=== PATIENT | female | born 1995 | race Caucasian/White ===

== ENCOUNTER 2020-01-13 12:35 | Inpatient (IN) | payer OTHER ==
[~2020-01-13] VITALS: Ht 165 cm; Wt 86.6 kg
[2020-01-13] MEDS ORDERED: OXYTOCIN 30 UNITS/LACT RINGERS 500 ML IV ONE ×2 (13:15→19:45)
[2020-01-13] MEDS ORDERED: METOCLOPRAMIDE HCL 5 MG/ML 2 ML VIAL IVP PRN (13:15)
[2020-01-13] MEDS ORDERED: RINGERS SOLUTION,LACTATED 1,000 ML IV PRN (13:15)
[2020-01-13] MEDS ORDERED: CITRIC ACID/SODIUM CITRATE 30 ML SOLUTION UDCUP PO PRN (13:15)
[2020-01-13] MEDS ORDERED: FentaNYL CITRATE-PF 100 MCG/2 ML VIAL IVP PRN (13:15)
[2020-01-13] MEDS ORDERED: METHYLERGONOVINE MALEATE 0.2 MG/ML VIAL IM PRN (13:15)
[2020-01-13] MEDS ORDERED: OXYTOCIN 30 UNITS/LACT RINGERS 500 ML IV PRN (13:15)
[2020-01-13] MEDS ORDERED: LIDOCAINE/PF 1% 30 ML VIAL INJ PRN ×2 (13:15→19:45)
[2020-01-13] MEDS: RINGERS SOLUTION,LACTATED 1,000 ML IV SCH ×2 (13:52→18:02)
[2020-01-13 14:36] VITALS: BP 110/72
[2020-01-13 14:40] LABS: BASOPHILS % (AUTO) 0.6 % (0.0-2.0); HEMATOCRIT 34.5 % (36-46); HEMOGLOBIN 11.6 g/dL (12.0-16.0); LYMPHOCYTES # (AUTO) 1.9 K/uL (1.0-4.8); LYMPHOCYTES % (AUTO) 25.6 % (22.0-44.0); MEAN CORPUSCULAR HEMOGLOBIN 30.1 pg (26.0-34.0); MEAN CORPUSCULAR HGB CONC 33.7 G/dL (31.0-37.0); MEAN CORPUSCULAR VOLUME 89 fL (80-100); MONOCYTES # (AUTO) 0.6 K/uL (0.1-1.0); MONOCYTES % (AUTO) 7.8 % (2.0-9.0); NEUTROPHILS # (AUTO) 4.9 K/uL (1.8-7.7); PLATELET COUNT (AUTO)-OB 171 K/uL (150-450); RED BLOOD CELL COUNT(AUTO) 3.86 MIL/uL (4.00-5.20); RED CELL DISTRIBUTION WIDTH 13.4 % (11.5-14.5)
[2020-01-13 15:12] LABS: COVID AG,FIA SOURCE NASOPHARYNGEAL
[2020-01-13] MEDS ORDERED: ROPIVACAINE HCL/PF 0.2% 100 ML ED ONE (15:43)
[2020-01-13] MEDS ORDERED: NALBUPHINE HCL 10 MG/ML VIAL IVP PRN (16:15)
[2020-01-13] MEDS ORDERED: ROPIVACAINE HCL/PF 0.2% 100 ML ED PRN (16:15)
[2020-01-13] MEDS ORDERED: DiphenhydrAMINE HCL 50 MG/ML VIAL IVP PRN (16:15)
[2020-01-13] MEDS ORDERED: ONDANSETRON HCL 4 MG/2 ML VIAL IVP PRN (16:15)
[2020-01-13] MEDS ORDERED: MINERAL OIL 30 ML UDCUP VG ONE (17:15)
[2020-01-13] MEDS ORDERED: MISOPROSTOL 100 MCG TABLET ONE (19:13)
[2020-01-13] MEDS ORDERED: ACETAMINOPHEN 325 MG TABLET ONE (19:21)
[2020-01-13] MEDS ORDERED: MEPERIDINE-PF 25 MG/ML VIAL ONE (19:21)
[2020-01-13] MEDS ORDERED: MISOPROSTOL 100 MCG TABLET PR ONE (19:30)
[2020-01-13] MEDS ORDERED: MEPERIDINE 50 MG/ML IVP ONE (19:30)
[2020-01-13] MEDS ORDERED: ACETAMINOPHEN 325 MG TABLET PO ONE (19:30)
[2020-01-13] MEDS ORDERED: GLYCERIN/WITCH HAZEL LEAF 40 PADS JAR TP PRN (19:45)
[2020-01-13] MEDS ORDERED: LANOLIN 7 GM OINTMENT TP PRN (19:45)
[2020-01-13] MEDS ORDERED: BENZOCAINE 20%/MENTHOL 56 GM SPRAY CANISTER TP PRN (19:45)
[2020-01-13] MEDS ORDERED: OxyCODONE HCL/ACETAMINOPHEN 5-325 MG TABLET PO PRN ×2 (19:45)
[2020-01-13] MEDS ORDERED: OXYGEN THERAPY IH SCH (20:00)
[2020-01-13] MEDS ORDERED: MEPERIDINE-PF 25 MG/ML VIAL IM ONE ×2 (20:45)
[2020-01-13] MEDS: MAGNESIUM HYDROXIDE SUSPENSION 30 ML UDCUP PO PRN (23:27)
[2020-01-13] MEDS: IBUPROFEN 800 MG TABLET PO PRN (23:28)
[2020-01-14 06:04] LABS: BASOPHILS % (AUTO) 0.7 % (0.0-2.0); EOSINOPHILS % (AUTO) 0.9 % (1.0-6.0); HEMATOCRIT 27.5 % (36-46); HEMOGLOBIN 9.4 g/dL (12.0-16.0); LYMPHOCYTES # (AUTO) 2.1 K/uL (1.0-4.8); LYMPHOCYTES % (AUTO) 25.9 % (22.0-44.0); MEAN CORPUSCULAR HEMOGLOBIN 30.7 pg (26.0-34.0); MEAN CORPUSCULAR HGB CONC 34.2 G/dL (31.0-37.0); MEAN CORPUSCULAR VOLUME 90 fL (80-100); MONOCYTES # (AUTO) 0.6 K/uL (0.1-1.0); MONOCYTES % (AUTO) 6.9 % (2.0-9.0); NEUTROPHILS # (AUTO) 5.2 K/uL (1.8-7.7); NEUTROPHILS % (AUTO) 65.6 % (40.0-70.0); PLATELET COUNT (AUTO)-OB 140 K/uL (150-450); RED BLOOD CELL COUNT(AUTO) 3.06 MIL/uL (4.00-5.20); RED CELL DISTRIBUTION WIDTH 13.5 % (11.5-14.5)
[2020-01-14] MEDS: IBUPROFEN 800 MG TABLET PO PRN ×2 (06:22→13:16)
[2020-01-14] MEDS: MAGNESIUM HYDROXIDE SUSPENSION 30 ML UDCUP PO PRN (09:22)
[2020-01-14] MEDS ORDERED: IBUP-2071 PO (13:24)
[2020-01-14] MEDS ORDERED: FERR-89 PO (13:25)
[2020-01-14] MEDS ORDERED: DOCU-275 PO (13:25)
== END 2020-01-14 18:40 | disposition home or self-care (01) | DRG 807 ==
LOC: 4S 12:35 → OBSVTOIN 12:35
PROVIDERS: ADMIT Obstetrics & Gynecology; ATTEND Obstetrics & Gynecology
PROC: 10D07Z8 Extraction of Products of Conception, Other, Via Natural or Artificial Opening (ICD-10-PCS; principal; 2020-01-13)
PROC: 0KQM0ZZ Repair Perineum Muscle, Open Approach (ICD-10-PCS; 2020-01-13)
PROC: 3E0S3BZ Introduction of Anesthetic Agent into Epidural Space, Percutaneous Approach (ICD-10-PCS; 2020-01-13)
PROC: 00HU33Z Insertion of Infusion Device into Spinal Canal, Percutaneous Approach (ICD-10-PCS; 2020-01-13)
DX: O70.1 Second degree perineal laceration during delivery (principal); Z37.0 Single live birth; Z3A.38 38 weeks gestation of pregnancy; Z20.828 Contact with and (suspected) exposure to other viral communicable diseases
CPT/HCPCS: 86850; 86900; 86901; 87426; J2175; J2590; J2795; J7120